=== PATIENT | female | born 1980 | race Caucasian/White ===

== ENCOUNTER 2019-04-07 11:36 | Emergency (ER) | payer SELFPAY ==
[~2019-04-07] VITALS: Ht 167.6 cm; Wt 95.7 kg
[2019-04-07 11:46] VITALS: Ht 167.6 cm; Wt 95.7 kg
[2019-04-07 15:16] VITALS: BP 120/85
== END 2019-04-07 15:16 | disposition home or self-care (01) ==
LOC: ED 11:36
DX: M54.12 Radiculopathy, cervical region (principal)
CPT/HCPCS: J1885